=== PATIENT | male | born 2000 | race African-American/Black ===

== ENCOUNTER 2024-11-08 16:56 | Emergency (ER) | payer MEDICAID ==
[~2024-11-08] VITALS: Ht 172.7 cm; Wt 81.0 kg
[2024-11-08 17:04] VITALS: O2SAT 98
[2024-11-08 20:50] VITALS: TEMP 36.8
[2024-11-08] MEDS ORDERED: PSEU120T56 MT (21:09)
[2024-11-08] MEDS ORDERED: AMOX-494 MT (21:09)
[2024-11-08 21:43] VITALS: BP 115/74; PULSE 55; RESP 20; O2SAT 100
== END 2024-11-08 21:45 | disposition home or self-care (01) ==
LOC: ER 16:56
DX: H92.02 Otalgia, left ear (principal)
CPT/HCPCS: 99283